=== PATIENT | male | born 1990 | race Two or more races ===

== ENCOUNTER 2024-09-09 21:41 | Emergency (ER) | payer MEDICAID, SELFPAY ==
[2024-09-09 21:45] VITALS: PULSE 78; O2SAT 92
[2024-09-09 21:50] VITALS: BP 125/82; PULSE 88; RESP 17; O2SAT 100
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
--- NOTE | 2024-09-09 21:54 | XR_ITS ---
Examination: AP chest single view TECHNIQUE: AP portable upright chest single view Exam date and time: September 09, 2024 10:17 PM INDICATIONS: Altered mental status with vomiting today. FINDINGS: Reduced inspiratory effort Minimal left perihilar opacity Right lung clear Normal heart size IMPRESSION: Minimal left perihilar pneumonia, consider aspiration pneumonia
[2024-09-09 21:55] VITALS: TEMP 36.8
[2024-09-09 21:58] VITALS: BMI 37.0
[2024-09-09] MEDS: SODIUM CHLORIDE 0.9% 1000 ML 1,000 ML 999 ML IV (22:00)
[2024-09-09] MEDS: NALOXONE INJ 0.4 MG/ML VIAL 2 MG IV (22:03)
[2024-09-09 22:06] LABS: Basophils % (Auto) 0 % (0-2.5); Eosinophils # (Auto) 0.2 Thou/mm3 (0.0-0.5); Eosinophils % (Auto) 2 % (0-10); Hematocrit 40.9 % (41.0-53.0); Hemoglobin 15.1 g/dL (13.5-16.0); Immature Granulocytes % (Auto) 0 % (0-0); Immature Granulocytes Auto 0.02 Thou/mm3 (0.00-0.00); Lymphocytes # (Auto) 6.6 Thou/mm3 (1.0-4.8); Lymphocytes % (Auto) 60 % (10-50); Mean Corpuscular HGB Conc 36.9 g/dl (31.0-37.0); Mean Corpuscular Hemoglobin 31.1 pg (25.0-35.0); Mean Corpuscular Volume 84 fL (80-100); Monocytes # (Auto) 0.8 Thou/mm3 (0.0-0.8); Monocytes % (Auto) 7 % (0-12); Neutrophils # (Auto) 3.4 Thou/mm3 (1.8-7.7); Neutrophils % (Auto) 31 % (37-80); Nucleated Red Blood Cell % 0 /100 WBC (0); Platelet Count 168 Thou/mm3 (140-440); RDW Standard Deviation 36.8 fL (35.1-43.9); Red Blood Count 4.85 Miln/mm3 (4.50-5.90); White Blood Count 11.1 Thou/mm3 (3.8-10.6)
[2024-09-09 22:29] LABS: Alanine Aminotransferase 112 U/L (10-49); Albumin, Serum 4.4 gm/dL (3.5-5.0); Albumin/Globulin Ratio 1.5 (1.2-2.2); Alcohol, Blood Medical 289.6 mg/dL (0-10.0); Alkaline Phosphatase 53 U/L (46-116); Anion Gap 12 (7-16); Aspartate Amino Transferase 68 U/L (0-34); BUN/Creatinine Ratio 6 Ratio (12-20); Bilirubin,Total 0.5 mg/dL (0.3-1.2); Blood Urea Nitrogen 6 mg/dL (9-23); Calcium 8.8 mg/dL (8.3-10.6); Calcium (Corrected) 8.8 mg/dL (8.5-10.1); Carbon Dioxide 22.5 mMol/L (20.0-31.0); Chloride 108 mMol/L (98-107); Estimated Creatinine Clearance 117.6 mL/min (>60); Globulin 2.9 gm/dL (2.3-3.5); Glucose 119 mg/dL (74-106); Osmolality,Calculated 281 (275-295); Potassium 3.5 mMol/L (3.4-5.1); Sodium 142 mMol/L (136-145); Total Protein 7.3 gm/dL (5.7-8.2); eGFR > 60 See Note
[2024-09-09 23:07] LABS: Collection Type, Urine Clean Catch
[2024-09-09 23:12] LABS: Bilirubin,Urine Negative (Negative); Blood,Urine Negative (Negative); Clarity,Urine Clear (Clear/Hazy); Color,Urine Lt-Yellow (Lt Yel-Yel); Glucose, Urine Negative (Negative); Ketones,Urine Negative (Negative); Leukocyte Esterase,Urine Negative (Negative); Nitrite,Urine Negative (Negative); PH,Urine 5.5 (5.0-7.0); Protein,Urine Negative (Neg - Trace); RBC,Urine 1 /hpf (0-3); Specific Gravity,Urine 1.013 (1.001-1.035); Squamous Epithelial Cell,Urine < 1 /hpf (0-5); Urobilinogen,Urine Negative mg/dL (0.0-1.0); WBC,Urine 2 /hpf (0-5)
[2024-09-09 23:18] LABS: Amphetamine/Methamp Scrn,U Negative (Negative); Barbiturate Screen,Urine Negative (Negative); Benzodiazepines Screen,Urine Negative (Negative); Benzoylecgonine Screen, Ur Negative (Negative); Fentanyl Screen,Urine Negative (Negative); Opiate Screen,Urine Negative (Negative); THC Screen,Urine Negative (Negative)
--- NOTE | 2024-09-10 00:01 | EDNOTE_ITS ---
Emergency Room Addendum Addendum Narrative: 2299 ? Care assumed Sedrick Alonso UTILIZATION COORDINATOR. Past medical, surgical, social and family history reviewed. Vitals and home medications reviewed. Results and treatment plan discussed. I will assume the care of the patient at this time and will follow the patient, pending final disposition. Please refer to the emergency department record for history and examination from initial visit. The following addendum documentation note is intended to reflect any pending information, findings, or radiology results not included in the patient?s initial chart. 2354 ? Patient resting comfortably, speaking in full sentences with his at bedside. expressed feeling comfortable taking the patient home, noting that he is typically an angry drinker. MD Attestation MD Attestation Scribe Attestation: I, Rishi Alford, am scribing for and in the presence of Dr. Pham. Provider Notation: Although this document has been carefully reviewed, there may still be some phonetic and other typographical errors. These errors are purely grammatical due to imperfections in the software program and should not be construed in any way to compromise the substance of the patient's medical care during this visit.
[2024-09-10 00:04] VITALS: BP 109/69; PULSE 79; RESP 18; TEMP 36.3; O2SAT 100
== END 2024-09-10 00:11 | disposition home or self-care (01) ==
PROVIDERS: Registered Nurse General Practice; Emergency Provider Emergency Medicine
DX: F10.90 Alcohol use, unspecified, uncomplicated (principal); Y90.8 Blood alcohol level of 240 mg/100 ml or more
CPT/HCPCS: 36415; 71045; 80053; 80307; 80320; 81001; 83735; 85025; 96360; 99284; J2310; J7030; G0480